=== PATIENT | male | born 1960 | race Caucasian/White ===

== ENCOUNTER 2017-02-14 09:26 | Emergency (ER) | payer MEDICARE ==
[~2017-02-14] VITALS: Ht 167.6 cm; Wt 66.7 kg
[~2017-02-14 09:26] MED LIST: ZESTRIL5 MG PO; ZITHROMAX Z-PA250 M1 PO
[2017-02-14] MEDS ORDERED: BACLOFEN 10MG T10 MG PO (09:43)
[2017-02-14] MEDS ORDERED: NEURONTIN 300M300 MG PO (10:05)
[2017-02-14] MEDS ORDERED: ACYCLOVIR800 MG PO (10:05)
--- NOTE | 2017-02-14 10:05 | Urgent Treatment Center Report ---
History of Present Issue Date/Time Seen by Provider 02/14/17 0924 Visit Reason Pt arrived:Walked Presenting Problem:PT STATES RASH THAT BEGAN ON THURSDAY. STATES RASH IS PAINFUL. RASH NOTED TO START AT RIGHT MIDBACK AND COMES AROUND TO UMBILICUS ON RIGHT SIDE Location if Accident: Onset of symptoms date/time:/ or onset unknown for:MEDICAL HX UNKNOWN Have you (or family members/close friends) recently traveled outside the [place]? N If Yes, where/when: Have you had exposure to infectious disease within the past month? TB? Other? Specify: Patient state that he noticed a rash that began on his right side on . States that the rash was painful and continued to get worse over the last few days. States that now it has moved around from his abdomen to his back and he looked it up and thinks he may have Shingles. States that he recently completed Chemo and called his family doctor to go there but they was closed today so he came to the [facility] ALLERGIES Coded Allergies: No Known Allergies (02/14/17) Home Medications Active Scripts Azithromycin (Zithromax Z-Mello 250MG Cap) 250 MG PO DAILY #6 CAP Prov: 02/24/15 Reported Medications Lisinopril (Zestril) 5 MG PO DAILY MISCELLANEOUS (UNKNOWN MEDICATION) 1 TAB PO TID BACLOFEN (Baclofen) 10 MG PO PRN PRN PAIN History Medical History General CAD? No Angina: No CO: No Hypertension? Yes Hyperlipidemia? Yes CHF? No DVT? No PE? No COPD? No Asthma? No Anemia? No GERD? Yes Gastric ulcers? No GI Bleed? No Hernia? No Thyroid Problems? No Hypothyroidism? No CVA? No Seizures? No Diabetes? No Renal Insuffiency? No UTI? No Stones? No GB Disease: No Nephritic Syndrome? No Asplenia? No Hepatitis? No Sickle Cell Disease? No Arthritis? Yes Migraines? No Cataracts? No Glaucoma? No MRSA? No HIV? No TB? No Anxiety? No Depression? No Cancer? Yes Site: BACK Immunization HX DT/Tetanus Unknown Surgical Hx Previous Surgery?Y JAW Social History Smoking Hx Smoker: Former Smoker Tobacco: No Alcohol Alcohol: Yes Review of Systems All Other Systems Reviewed and Negative Skin rash Comment Raised rash that goes from his abdomen around his right side to his back Physical Exam Vital Signs Vital Signs Date Time Temp Pulse Resp B/P Pulse O2 O2 Flow FiO2 Ox Delivery Rate 02/14 0940 98.3 92 18 137/92 99 General Appearance normal appearance, WD/WN, no apparent distress Respiratory Status Yes: trachea midline, chest symmetrical. No: respiratory distress. 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 Patient state painful at times and continued to worsen over the last 2 days Medical Decision Making LABS/Meds/Orders Pt receiving controlled substance in ED? No Departure Departure Time of Disposition 953 Disposition DC Home or Self Care(routine) Clinical Impression Primary Impression: Shingles Qualifiers: Herpes zoster complications: without complications Qualified Code: B02.9 - Zoster without complications Condition STABLE Referrals Ricardo Pressley MD (Family): 2 Days-Call Office call on Thursday and make appointment Patient Instructions DI for Shingles, Shingles (Herpes Zoster) (Alternative Therapy), Shingles (Zoster) Vaccine Additional Instructions Take medication as prescribed Follow up with family doctor on Thursday and advise of recent diagnoses and medication prescribed Return if needed Keep area clean and dry Read handouts provided on shingles virus Discharge Counseling Counseled pt/family regarding diagnosis, medications/RX, home care, follow up needs Prescriptions Current Visit Scripts Acyclovir (Acyclovir 800MG) 800 MG PO 5XDAY #35 TAB Gabapentin (Neurontin 300MG) 300 MG PO TID #60 CAP at 1011
--- NOTE | 2017-02-14 10:05 | Urgent Treatment Center Report ---
History of Present Issue Date/Time Seen by Provider 02/14/17 0938 Visit Reason Pt arrived:Walked Presenting Problem:PT STATES RASH THAT BEGAN ON THURSDAY. STATES RASH IS PAINFUL. RASH NOTED TO START AT RIGHT MIDBACK AND COMES AROUND TO UMBILICUS ON RIGHT SIDE Location if Accident: Onset of symptoms date/time:/ or onset unknown for:MEDICAL HX UNKNOWN Have you (or family members/close friends) recently traveled outside the [place]? N If Yes, where/when: Have you had exposure to infectious disease within the past month? TB? Other? Specify: Patient state that he noticed a rash that began on his right side on . States that the rash was painful and continued to get worse over the last few days. States that now it has moved around from his abdomen to his back and he looked it up and thinks he may have Shingles. States that he recently completed Chemo and called his family doctor to go there but they was closed today so he came to the [facility] ALLERGIES Coded Allergies: No Known Allergies (02/14/17) Home Medications Active Scripts Azithromycin (Zithromax Z-Mello 250MG Cap) 250 MG PO DAILY #6 CAP Prov: 02/24/15 Reported Medications Lisinopril (Zestril) 5 MG PO DAILY MISCELLANEOUS (UNKNOWN MEDICATION) 1 TAB PO TID BACLOFEN (Baclofen) 10 MG PO PRN PRN PAIN History Medical History General CAD? No Angina: No MD: No Hypertension? Yes Hyperlipidemia? Yes CHF? No DVT? No PE? No COPD? No Asthma? No Anemia? No GERD? Yes Gastric ulcers? No GI Bleed? No Hernia? No Thyroid Problems? No Hypothyroidism? No CVA? No Seizures? No Diabetes? No Renal Insuffiency? No UTI? No Stones? No GB Disease: No Nephritic Syndrome? No Asplenia? No Hepatitis? No Sickle Cell Disease? No Arthritis? Yes Migraines? No Cataracts? No Glaucoma? No MRSA? No HIV? No TB? No Anxiety? No Depression? No Cancer? Yes Site: BACK Immunization HX DT/Tetanus Unknown Surgical Hx Previous Surgery?Y JAW Social History Smoking Hx Smoker: Former Smoker Tobacco: No Alcohol Alcohol: Yes Review of Systems All Other Systems Reviewed and Negative Skin rash Comment Raised rash that goes from his abdomen around his right side to his back Physical Exam Vital Signs Vital Signs Date Time Temp Pulse Resp B/P Pulse O2 O2 Flow FiO2 Ox Delivery Rate 02/14 0940 98.3 92 18 137/92 99 General Appearance normal appearance, WD/WN, no apparent distress Respiratory Status Yes: trachea midline, chest symmetrical. No: respiratory distress. 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 Patient state painful at times and continued to worsen over the last 2 days Medical Decision Making LABS/Meds/Orders Pt receiving controlled substance in ED? No Departure Departure Time of Disposition 953 Disposition DC Home or Self Care(routine) Clinical Impression Primary Impression: Shingles Qualifiers: Herpes zoster complications: without complications Qualified Code: B02.9 - Zoster without complications Condition STABLE Referrals Ricardo Pressley MD (Family): 2 Days-Call Office call on Thursday and make appointment Patient Instructions DI for Shingles, Shingles (Herpes Zoster) (Alternative Therapy), Shingles (Zoster) Vaccine Additional Instructions Take medication as prescribed Follow up with family doctor on Thursday and advise of recent diagnoses and medication prescribed Return if needed Keep area clean and dry Read handouts provided on shingles virus Discharge Counseling Counseled pt/family regarding diagnosis, medications/RX, home care, follow up needs Prescriptions Current Visit Scripts Acyclovir (Acyclovir 800MG) 800 MG PO 5XDAY #35 TAB Gabapentin (Neurontin 300MG) 300 MG PO TID #60 CAP at 1011
[2017-02-14 10:07] VITALS: BP 137/92
--- OUTSIDE RECORDS SUMMARY | 2017-02-15 22:17 | External Medical Summary Rpt ---
Author Author , Organization [employer] Address Unknown Phone Unavailable Purpose Continuity of Care Document - through 2016
--- OUTSIDE RECORDS SUMMARY | 2017-02-15 22:17 | External Medical Summary Rpt ---
Author Author [employer], [employer] Organization [employer] Address Unknown Phone Unavailable Results [id number] Observa Value Referen Units Interpr Notes Date tion ce etation Range TEXT [place] No No No No Aug 07 DIAGNOS informa informa informa informa 2016 IS [place] tion in tion in tion in tion in 1:43 PM BATTERY l source source source source [facility] [id number] [place] [phone] Patient : Sex: Age: Unit Number: DHIRAJ ACEVES M 55 [id number] 529Orde geetha Hurley an: Status: Date of : Account Number: ABRAHAM MCGOWAN MD [facility] [id number] kyle Hurley an: Locatio n: Room Number: Date of Exam:NO NSTAFF, OTHER EOR 6REASON FOR EXAM: T6 BIOPSYR ROSLYN FOR VISIT: T6 BIOPSYA CCESSIO N # [id number] __Fluor oscopy was provide d . There is no charge for thisdic tation. This is for hospita l billing purpose s only.Im presslashawn n:Fluor oscopy provide d.Site 2 ____Ele ctronic ally signed by: KAREEM JORDAN ate: 6Time: 13:43__ ___DEANN MCGILL MDDicta patrica: 6 [id number] elmer : 6 1343 ANAEROBIC CULTURE Observa Value Referen Units Interpr Notes Date tion ce etation Range ANAEROB NO No No No No Jul 23 IC ANAEROB informa informa informa informa 2016 CULTURE ES tion in tion in tion in tion in 6:35 AM REPORT ISOLATE source source source source D AT 3 data data data data DAYS WOUND CULTURE\T\GRAM STAIN Observa Value Referen Units Interpr Notes Date tion ce etation Range WOUND NO No No No No Jul 23 CULTURE GROWTH informa informa informa informa 2016 REPORT AFTER 3 tion in tion in tion in tion in 6:34 AM DAYS source source source source data data data data
--- OUTSIDE RECORDS SUMMARY | 2017-02-15 22:17 | External Medical Summary Rpt ---
Author Author [employer], [employer] Organization [employer] Address Unknown Phone Unavailable Results [id number] Observa Value Referen Units Interpr Notes Date tion ce etation Range TEXT [place] No No No No Aug 07 DIAGNOS informa informa informa informa 2016 IS [place] tion in tion in tion in tion in 1:43 PM BATTERY l source source source source [facility] data data [facility] [id number] [place] [phone] Patient : Sex: Age: Unit Number: DHIRAJ ACEVES M 55 [id number] 529Orde geetha Hurley an: Status: Date of : Account Number: ABRAHAM MCGOWAN MD [facility] [id number] kyle Hurley an: Locatio n: Room Number: Date of Exam:NO NSTAFF, OTHER EOR 6REASON FOR EXAM: T6 BIOPSYR ROSLYN FOR VISIT: T6 BIOPSYA CCESSIO N # [id number] __Fluor oscopy was provide d [...]
--- OUTSIDE RECORDS SUMMARY | 2017-02-15 22:17 | External Medical Summary Rpt ---
Author Author , Organization [employer] Address Unknown Phone Unavailable Purpose Continuity of Care Document - 08-07-2016 through 2016
--- OUTSIDE RECORDS SUMMARY | 2017-02-15 22:17 | External Medical Summary Rpt ---
Demographics Preferred Language [place] Marital Status Unknown Muslim Affiliation Unknown Race Unknown Ethnic Group Unknown Author Author , Organization [employer] Address Unknown Phone Unavailable Purpose Continuity of Care Document - through 2016 Immunization No patient found.
--- OUTSIDE RECORDS SUMMARY | 2017-02-15 22:17 | External Medical Summary Rpt ---
Demographics Preferred Language [place] Marital Status Unknown Caodaism Affiliation Unknown Race Unknown Ethnic Group Unknown Author Author , Organization [employer] Address Unknown Phone Unavailable Purpose Continuity of Care Document - through 2016 Immunization No patient found.
== END 2017-02-14 10:09 | disposition home or self-care (01) ==
LOC: UTC 09:26
DX: B02.9 Zoster without complications (principal)